=== PATIENT | male | born 1945 | race Caucasian/White ===

== ENCOUNTER 2018-01-08 05:58 | Observation (INO) ==
[2018-01-08] MEDS ORDERED: ONDANSETRON 4 MG/2 ML VIAL IV STA (06:46)
[2018-01-08] MEDS ORDERED: ONDANSETRON 4 MG/2 ML VIAL ONE (06:49)
[2018-01-08 06:52] LABS: Basophils % 0.4 % (0.0-0.8); Eosinophils # 0.2 10*3/uL (0.0-0.87); Hematocrit 36.3 VOL% (42.0-52.0); Hemoglobin 12.6 GM/DL (14.0-18.0); Immature Granulocytes % 0.3 %; Immature Granulocytes Absolute 0.03 #; Lymphocytes # 1.4 10*3/uL (1.4-4.0); Mean Corpuscular HGB Conc 34.7 GM/DL (32-36); Mean Corpuscular Hemoglobin 32 PG (27-34); Mean Corpuscular Volume 93.1 FL (87-102); Mean Platelet Volume 9.8 FL (9.6-12.0); Monocytes # 0.8 10*3/uL (0.11-0.8); Monocytes % 8.2 % (1.7-12.7); Neutrophils % 74.1 % (38.7-73.9); Platelet Count 230 T/CUMM (130-400); Red Cell Distribution Width 12.5 % (9.3-17.3); White Blood Count 9.5 T/CUMM (4-12)
[2018-01-08 07:11] LABS: Bilirubin,Total 0.7 MG/DL (0.2-1.0); Calcium 9.1 MG/DL (8.5-10.1); Osmolality,Calculated 266.2 MOS/KG (273-304); Potassium 4.4 MMOL/L (3.5-5.1); Total Protein 7.4 G/DL (6.4-8.3)
[2018-01-08 11:33] LABS: Amorphous Crystals,Urine Few /HPF (Few); Apearance,Urine CLOUDY (Clear); Bilirubin,Urine Negative (Negative); Blood, Urine Negative (Negative); Glucose,Urine (UA) Negative (Negative); Hyaline Casts,Urine 9 /LPF (0-3); Ketones,Urine 5 mg/dL (Negative); Mucus,Urine Few /LPF (Occasional); Nitrite,Urine Negative (Negative); Protein,Urine Negative; RBC,Urine 1 /HPF (0-4); Urine Color Yellow (Yellow); Urine Urobilinogen < 2.0 EU/DL (0.2-1.0); WBC,Urine 1 /HPF (0-6)
[2018-01-08] MEDS ORDERED: ACETAMINOPHEN 325 MG TABLET PO PRN (14:18)
[2018-01-08] MEDS ORDERED: ONDANSETRON 4 MG/2 ML VIAL IV PRN (14:18)
[2018-01-08] MEDS: LACTATED RINGERS 1,000 ML IV SCH (15:01)
[2018-01-08] MEDS: PIPERACILLIN/TAZOBACTAM 3,375 MG in SODIUM CHLORIDE 0.9% 100 ML IV SCH ×2 (15:03→21:48)
[2018-01-08] MEDS ORDERED: PNEUMOCOCCAL VACCINE (13 VALENT) 0.5 ML SYRINGE IM ONE (17:00)
[2018-01-09] MEDS: LACTATED RINGERS 1,000 ML IV SCH ×5 (04:42→22:45)
[2018-01-09] MEDS: PIPERACILLIN/TAZOBACTAM 3,375 MG in SODIUM CHLORIDE 0.9% 100 ML IV SCH ×3 (05:31→22:42)
[2018-01-09] MEDS: HYDROmorphone 2 MG/1 ML VIAL IV PRN ×5 (06:05→15:10)
[2018-01-09] MEDS ORDERED: TISSUE ADHESIVE 1 EACH APPLICATOR TOP ONE (06:24)
[2018-01-09] MEDS ORDERED: LIDOCAINE 1%/EPI INJ 20 ML VIAL ONE (06:25)
[2018-01-09] MEDS ORDERED: BUPIVACAINE 0.25% 50 ML VIAL ONE (06:25)
[2018-01-09] MEDS ORDERED: PHENYLEPHRINE 10 MG/1 ML VIAL IV ONE (08:09)
[2018-01-09] MEDS ORDERED: ONDANSETRON 4 MG/2 ML VIAL ONE ×2 (08:09→08:12)
[2018-01-09] MEDS ORDERED: fentaNYL 100 MCG/2 ML VIAL ONE (08:09)
[2018-01-09] MEDS ORDERED: SEVOFLURANE 1 UNIT/15 MINUTE INH ONE (08:09)
[2018-01-09] MEDS ORDERED: PROPOFOL 200 MG/20 ML VIAL IV ONE (08:09)
[2018-01-09] MEDS ORDERED: ROCURONIUM 100 MG/10 ML VIAL IV ONE (08:10)
[2018-01-09] MEDS ORDERED: NEOSTIGMINE 10 MG/10 ML VIAL ONE (08:10)
[2018-01-09] MEDS ORDERED: GLYCOPYRROLATE 0.4 MG/2 ML VIAL ONE (08:10)
[2018-01-09] MEDS ORDERED: HYDROmorphone 2 MG/1 ML VIAL ONE (08:12)
[2018-01-09] MEDS ORDERED: ONDANSETRON 4 MG/2 ML VIAL IV PRN (08:24)
[2018-01-09 09:07] LABS: Basophils % 0.4 % (0.0-0.8); Eosinophils # 0.3 10*3/uL (0.0-0.87); Eosinophils % 3.4 % (0.00-10.9); Hematocrit 35.4 VOL% (42.0-52.0); Hemoglobin 11.7 GM/DL (14.0-18.0); Immature Granulocytes % 0.4 %; Immature Granulocytes Absolute 0.03 #; Lymphocytes # 1.5 10*3/uL (1.4-4.0); Lymphocytes % 18.8 % (21.2-54.2); Mean Corpuscular HGB Conc 33.1 GM/DL (32-36); Mean Corpuscular Hemoglobin 32 PG (27-34); Mean Corpuscular Volume 95.7 FL (87-102); Mean Platelet Volume 9.5 FL (9.6-12.0); Monocytes # 0.6 10*3/uL (0.11-0.8); Neutrophils # 5.6 10*3/uL (1.4-7.4); Platelet Count 210 T/CUMM (130-400); Red Cell Distribution Width 12.5 % (9.3-17.3)
[2018-01-09] MEDS: PANTOPRAZOLE 40 MG TABLET PO SCH (09:41)
[2018-01-09 09:44] LABS: Albumin 3.9 G/DL (3.4-5.0); Bilirubin,Total 1.3 MG/DL (0.2-1.0); Calcium 8.6 MG/DL (8.5-10.1); Osmolality,Calculated 266.2 MOS/KG (273-304); Potassium 4.1 MMOL/L (3.5-5.1); Total Protein 6.6 G/DL (6.4-8.3)
[2018-01-09] MEDS ORDERED: PROMETHAZINE 25 MG TABLET PO PRN (15:13)
[2018-01-09] MEDS ORDERED: MAGNESIUM HYDROXIDE SUSP 30 ML UDCUP PO PRN (15:17)
[2018-01-09] MEDS ORDERED: TAMSULOSIN 0.4 MG CAPSULE PO SCH (21:00)
[2018-01-10] MEDS: PIPERACILLIN/TAZOBACTAM 3,375 MG in SODIUM CHLORIDE 0.9% 100 ML IV SCH ×2 (06:08→16:25)
[2018-01-10] MEDS: PANTOPRAZOLE 40 MG TABLET PO SCH (09:17)
[2018-01-10 12:02] VITALS: BP 118/70
[2018-01-10] MEDS: LACTATED RINGERS 1,000 ML IV SCH (13:41)
== END 2018-01-10 15:55 | disposition home or self-care (01) ==
LOC: N.ED 05:58 → N.EDINP 05:58 → N.3E 14:10
PROVIDERS: ADMIT Surgery; ATTEND Surgery
PROC: LAPCHOL (2018-01-09 07:50)

== ENCOUNTER 2021-05-07 17:18 | Inpatient (IN) ==
[2021-05-07 18:44] LABS: Basophils % 0.3 % (0.0-0.8); Eosinophils % 0.1 % (0.00-10.9); Hematocrit 35.3 VOL% (42.0-52.0); Hemoglobin 11.8 GM/DL (14.0-18.0); Immature Granulocytes % 1.2 %; Immature Granulocytes Absolute 0.17 #; Lymphocytes % 6.8 % (21.2-54.2); Mean Corpuscular HGB Conc 33.4 GM/DL (32-36); Mean Corpuscular Volume 94.6 FL (87-102); Mean Platelet Volume 10.8 FL (9.6-12.0); Neutrophils % 85.6 % (38.7-73.9); Platelet Count 251 T/CUMM (130-400); Red Blood Count 3.73 MC/CUMM (3.8-5.5); Red Cell Distribution Width 13.6 % (9.3-17.3); White Blood Count 14.3 T/CUMM (4-12)
[2021-05-07 19:03] LABS: Albumin 4.1 G/DL (3.4-5.0); Bilirubin,Total 0.7 MG/DL (0.20-1.00); Calcium 9.5 MG/DL (8.5-10.1); Osmolality,Calculated 271.8 MOS/KG (273-304); Potassium 3.4 MMOL/L (3.5-5.1); Total Protein 7.8 G/DL (6.4-8.2)
[2021-05-07] MEDS ORDERED: levETIRAcetam 500 MG/5 ML VIAL IV ONE (19:11)
[2021-05-07] MEDS ORDERED: DEXTROSE 50% 25 GM/50 ML VIAL IV PRN (19:46)
[2021-05-07] MEDS ORDERED: GLUCAGON 1 MG VIAL IM PRN (19:46)
[2021-05-07] MEDS ORDERED: ACETAMINOPHEN 325 MG TABLET PO PRN (20:29)
[2021-05-07] MEDS ORDERED: MORPHINE 2 MG/1 ML SYRINGE IV PRN (20:31)
[2021-05-07] MEDS ORDERED: LORazepam 2 MG/1 ML VIAL IV PRN (20:33)
[2021-05-07] MEDS: ENOXAPARIN 40 MG/0.4 ML SYRINGE SUBCUT SCH (20:41)
[2021-05-07] MEDS ORDERED: FLUDROCORTISONE 0.1 MG TABLET PO SCH (21:00)
[2021-05-07] MEDS ORDERED: METOCLOPRAMIDE 10 MG/10 ML UDCUP PO SCH ×2 (21:00)
[2021-05-07] MEDS ORDERED: PNEUMOCOCCAL VACCINE (13 VALENT) 0.5 ML SYRINGE IM ONE (22:22)
[2021-05-07] MEDS: MORPHINE 2 MG/1 ML SYRINGE IV PRN (22:53)
[2021-05-07] MEDS: FLUDROCORTISONE 0.1 MG TABLET PO SCH (23:16)
[2021-05-08] MEDS: LORazepam 2 MG/1 ML VIAL IV PRN ×3 (00:54→19:59)
[2021-05-08] MEDS: ONDANSETRON 4 MG/2 ML VIAL IV PRN ×2 (05:07→22:34)
[2021-05-08 06:28] LABS: Basophils % 0.3 % (0.0-0.8); Eosinophils % 0.2 % (0.00-10.9); Hematocrit 33.9 VOL% (42.0-52.0); Hemoglobin 11.3 GM/DL (14.0-18.0); Immature Granulocytes % 0.5 %; Immature Granulocytes Absolute 0.06 #; Lymphocytes % 15.7 % (21.2-54.2); Mean Corpuscular HGB Conc 33.3 GM/DL (32-36); Mean Corpuscular Volume 94.7 FL (87-102); Monocytes % 8.2 % (1.7-12.7); Neutrophils % 75.1 % (38.7-73.9); Platelet Count 260 T/CUMM (130-400); Red Blood Count 3.58 MC/CUMM (3.8-5.5); Red Cell Distribution Width 13.5 % (9.3-17.3); White Blood Count 12.6 T/CUMM (4-12)
[2021-05-08 06:29] LABS: Calcium 9.1 MG/DL (8.5-10.1); Osmolality,Calculated 275.7 MOS/KG (273-304); Potassium 2.8 MMOL/L (3.5-5.1); Risk Ratio 3.4; Thyroid Stimulating Hormone 2.14 uIU/ml (0.358-3.74); VLDL Cholesterol 15.8 MG/DL
[2021-05-08] MEDS ORDERED: POTASSIUM CHLORIDE 20 MEQ TABLET PO PRN (07:05)
[2021-05-08 07:38] LABS: Bilirubin,Urine Negative (Negative); Blood, Urine Small mg/dL (Negative); Glucose,Urine (UA) Negative (Negative); Hyaline Casts,Urine 1 /LPF (0-3); Ketones,Urine Negative (Negative); Mucus,Urine Occasional /LPF (Occasional); Nitrite,Urine Negative (Negative); Protein,Urine Negative; RBC,Urine 3 /HPF (0-4); Urine Appearance CLEAR (Clear); Urine Color Yellow (Yellow); Urine Urobilinogen < 2.0 EU/DL (0.2-1.0)
[2021-05-08] MEDS ORDERED: hydrALAZINE 20 MG/1 ML VIAL IV PRN (07:42)
[2021-05-08] MEDS ORDERED: SERTRALINE 25 MG TABLET PO SCH (09:00)
[2021-05-08] MEDS ORDERED: ASPIRIN CHEW 81 MG TABLET PO SCH (09:00)
[2021-05-08] MEDS ORDERED: ASPIRIN 300 MG SUPP RECTAL SCH (09:00)
[2021-05-08] MEDS ORDERED: ALFUZOSIN 10 MG TABLET PO SCH (09:00)
[2021-05-08] MEDS ORDERED: PANTOPRAZOLE 40 MG TABLET PO SCH (09:00)
[2021-05-08] MEDS ORDERED: FLUDROCORTISONE 0.1 MG TABLET PO SCH (09:00)
[2021-05-08] MEDS: POTASSIUM CHLORIDE RIDER 10 MEQ/100 ML PREMIX IV PRN ×5 (09:16→20:14)
[2021-05-08] MEDS ORDERED: SODIUM CHLOR 0.45% KCL 20 MEQ 20 MEQ/1,000 ML BAG IV SCH (09:30)
[2021-05-08] MEDS: FLUDROCORTISONE 0.1 MG TABLET PO SCH ×2 (10:55→21:00)
[2021-05-08] MEDS: POTASSIUM CHLORIDE 20 MEQ/15 ML UDCUP PO SCH (10:55)
[2021-05-08] MEDS: ENOXAPARIN 40 MG/0.4 ML SYRINGE SUBCUT SCH (20:59)
[2021-05-08] MEDS ORDERED: MAGNESIUM HYDROXIDE SUSP 30 ML UDCUP PO SCH (21:00)
[2021-05-08] MEDS: MORPHINE 2 MG/1 ML SYRINGE IV PRN (22:36)
[2021-05-09 00:03] VITALS: BP 145/87
[2021-05-09] MEDS ORDERED: CHOLECALCIFEROL 5,000 UNIT TABLET PO SCH (09:00)
[2021-05-09] MEDS ORDERED: FINASTERIDE 5 MG TABLET PO SCH (21:00)
== END 2021-05-09 02:31 | disposition expired | DRG 66 ==
LOC: EDBD → EDUNIT# → N.EDINP 17:18 → N.ED 17:18 → N.TELES 22:00
PROVIDERS: ADMIT Internal Medicine; ATTEND Internal Medicine